=== PATIENT | female | born 2000 | race Two or more races ===

== ENCOUNTER 2022-04-27 13:32 | Emergency (ER) | payer OTHER ==
[~2022-04-27] VITALS: Ht 165.1 cm; Wt 66.7 kg
== END 2022-04-27 20:06 | disposition home or self-care (01) ==
LOC: ER 13:32
DX: O23.41 Unspecified infection of urinary tract in pregnancy, first trimester (principal); N39.0 Urinary tract infection, site not specified; Z3A.01 Less than 8 weeks gestation of pregnancy